=== PATIENT | female | born 1990 | race African-American/Black ===

== ENCOUNTER 2020-05-22 19:37 | Emergency (ER) | payer OTHER ==
[2020-05-22 19:45] VITALS: BP 121/79; PULSE 84; TEMP 97.8; BMI 31.8
--- NOTE | 2020-05-22 19:48 | PDOC ---
Rapid Medical Evaluation Time Seen by Provider: 05/22/20 19:43 Medical Evaluation: 05/22/20 19:43 CC: low back pain radiating laterally bilateral. No urinary complaints, no rash, no abd pain, currently completing menses, fell on wednesday when pain to back also started. took tylenol with mild relief Exam: + cva tenderness, noted abrasion to face Plan: urine Discharge Disposition - Diagnosis Back pain - Referrals - Patient Instructions - Post Discharge Activity
--- OUTSIDE RECORDS SUMMARY | 2020-05-22 19:55 | XMS ---
:1990 [facility] Providers Name Role Phone Brooklynn Unavailable Unavailable Other Unavailable Unavailable Re-disclosure Warning The records that you are about to access may contain information from federally- assisted alcohol or drug abuse programs. If such information is present, then the following federally mandated warning applies: This information has been disclosed to you from records protected by federal confidentiality rules (42 CFR part 2). The federal rules prohibit you from making any further disclosure of this information unless further disclosure is expressly permitted by the written consent of the person to whom it pertains or as otherwise permitted by 42 CFR part 2. A general authorization for the release of medical or other information is NOT sufficient for this purpose. The Federal rules restrict any use of the information to criminally investigate or prosecute any alcohol or drug abuse patient.The records that you are about to access may contain highly sensitive health information, the redisclosure of which is protected by Article 27-F of the [place] State Public Health law. If you continue you may haveaccess to information: Regarding HIV / AIDS; Provided by facilities licensed or operated by the [facility] Office of Mental Health; or Provided by the [facility] Office for People With Developmental Disabilities. If such information is present, then the following [facility] mandated warning applies: This information has been disclosed to you from confidential records which are protected by state law. State law prohibits you from making any further disclosure of this information without the specific written consent of the person to whom it pertains, or as otherwise permitted by law. Any unauthorized further disclosure in violation of state law may result in a fine or custodial sentence or both. A general authorization for the release of medical or other information is NOT sufficient authorization for further disclosure. Encounters Encounter Providers Location Date Indications Data Source(s ) Emergency Attender: [id number] 12/29/2019 [facility] - [facility] DysonAttender: 06:56:00 PM PAIN/HEADACHE/BRUIS [facility] Doctor Other EDT - ES 12/29/2019 08:36:00 PM EDT BACK PAIN/HEADACHE/BRUISES Patient discharged. Medications Medication Brand Start Product Dose Route Administrative Pharmacy [facility] Indications Reaction Description Data Name Date Form Instructions Instructions Source(s) Ibuprofen Alivio [id number] active Alivio [facility] 600 MG Oral 600 mg 2019 {tab( Healt h Tablet oral 08:27: s)} System Alivio 600 tablet 16 PM mg oral EDT tablet Do not take this drug if you are pregnan t.It is very important that you take or use this exactly as directed. Do not skip d oses or discontinue unless directed by your doctor.May cause drowsiness or dizziness .Obtain medical advice before taking any non-prescription drugs as some may affec t the action of this medication.Take with food or milk. Insurance Providers Payer name Policy type / Policy ID Covered Covered alliance party's Policy Plan Coverage type alliance party ID relationship to Strong Information strong [facility] [id number] [facility] [id number] [facility] [id number] Problems, Conditions, and Diagnoses Code Display Name Description Problem Type Effective Data Sour ce(s) Dates M79.10 Myalgia Myalgia 07221-9 12/29/2019 [facility] 12:00:00 AM Health System EDT W19.XXXA Unspecified fall, Unspecified fall, Diagnosis 12/29/2019 [facility] initial encounter initial encounter 06:56:00 PM [facility] EDT Y92.89 Other specified Other specified Diagnosis 12/29/2019 [facility] places as the places as place 06:56:[address] [facility] [address] of of occurrence of EDT occurrence of the external cause external cause Y99.8 Other external Other external Diagnosis 12/29/2019 [facility] cause status cause of injury 06:56:00 PM [facility] or poisoning EDT M79.10 Myalgia Myalgia Diagnosis 12/29/2019 [facility] 06:56:00 PM [facility] EDT M79.18 Myalgia, other Myalgia, other Diagnosis 12/29/2019 [facility] site site 06:56:00 PM [facility] EDT S70.12XA Contusion of left Contusion of left Diagnosis 12/29/2019 [facility] thigh, initial thigh, initial 06:56:00 PM [facility] Hospital encounter encounter EDT BACK BACK Diagnosis 12/29/2019 [facility] PAIN/HEADACHE/BRU PAIN/HEADACHE/BRU 06:56:00 PM [facility] EDT Y93.89 Activity, other Other activity Diagnosis 12/29/2019 [facility] specified 06:56:00 PM [facility] EDT Surgeries/Procedures Procedure Description Date Indications Data Source(s) Urine Test 12/29/2019 [facility] POCT 07:51:59 PM EDT - System 12/29/2019 07:52:13 PM EDT Results ID Date Data Source [id number] 12/08/2019 11:12:00 AM EDT [facility] Name Value Range Interpretation Code Description Data Samina rce(s) Supporting Document(s ) SARS-CoV-2 [facility] RNA [facility] Ql JYOTSNA+probe This lab was ordered by [facility] a nd reported by [facility]. Procedure Vital Signs ID Date Data Source UNK Name Value Range Interpretation Code Description Data Source(s) Diastolic blood 93 mm[Hg] 0 - 999 Above high normal 93 mm[Hg] [facility] Systolic blood 138 mm[Hg] 0 - 999 Normal (applies to 138 mm[Hg] [facility] non-numeric results) [facility] Oxygen saturation 98 % 0 - 999 Normal (applies to 98 % [facility] in Arterial blood non-numeric results) Health System by Pulse oximetry Respiratory rate 16 0 - 999 Normal (applies to 16 [facility] non-numeric results) [facility] Heart rate 71 0 - 999 Normal (applies to 71 [facility] non-numeric results) [facility] Body surface area 1.7 m2 1.7 m2 [facility] Derived from Health Syste m formula Body mass index 30.5 kg/m2 30.5 kg/m2 [facility] (BMI) [Ratio] [facility] Body weight 75.74 kg 75.74 kg [facility] Body height 157.48 cm 157.48 cm [facility] Body temperature 99.4 [degF] 0 - 200 Normal (applies to 99.4 [degF ] [facility] non-numeric results) [facility] Body temperature 37.4 Celena 0 - 99.9 Normal (applies to 37.4 Celena [facility] non-numeric results) [facility] Patient Treatment Plan of Care Planned Activity Planned Date Details Description Data Source (s) Ibuprofen 600 MG Oral 12/29/2019 08:27:16 [facility] PM EDT System
[2020-05-22 20:26] LABS: EPI CELLS >36 /uL (0-25.1); HYALINE CASTS 9 /uL (0-3.1); URINE APPEARANCE CLEAR; URINE BACTERIA 278 /uL (0-1359); URINE BILIRUBIN NEGATIVE (NEGATIVE); URINE COLOR DK YELLOW; URINE GLUCOSE (UA) NEGATIVE (NEGATIVE); URINE KETONE 1+ (NEGATIVE); URINE LEUK ESTERASE TRACE (NEGATIVE); URINE NITRITE NEGATIVE (NEGATIVE); URINE PROTEIN 2+ (NEGATIVE); URINE RBC 6 /uL (0-23.9); URINE WBC 64 /uL (0-25.8)
[2020-05-22] MEDS ORDERED: IBUPROFEN 600 MG TABLET (FP) PO ONE (20:34)
[2020-05-22] MEDS ORDERED: diazePAM 5 MG TABLET PO ONE (20:34)
--- NOTE | 2020-05-22 20:44 | PDOC ---
History of Present Illness - General Chief Complaint: Injury Stated Complaint: BACK PAIN Time Seen by Provider: 05/22/20 19:43 History Source: Patient Exam Limitations: No Limitations - History of Present Illness Initial Comments: 05/22/20 20:34 29-year-old female past medical history chronic back pain after fall in December presenting to ED complaining of acute on chronic back pain after trip and fall on Wednesday. Patient states that she tripped and fell over her child's crib hitting her face and side. Patient did not have loss of consciousness remembers the event has no headache and no episodes of nausea vomiting. Patient describes the back pain is bilateral and spasm-like typical of her normal acute on chronic back pain. Improved with Tylenol pt otherwise denies: fevers, chills, syncope, lightheadedness, dizziness, headaches, neck pain, chest pain, shortness of breath, palpitation, abdominal pain, nausea, vomiting, diarrhea, constipation. Past History - Medical History Allergies/Adverse Reactions: Allergies Allergy/AdvReac Type Severity Reaction Status Date / Time No Known Allergies Allergy Verified 05/22/20 20:37 COPD: No - Reproductive History Is Patient Now?: No - Psycho-Social/Smoking History Smoking History: Never smoked - Substance Abuse Hx (Audit-C & DAST Scrn) How often the patient has a drink containing alcohol: Never Score: In Men: 4 or > Positive; In Women: 3 or > Positive: 0 Screen Result (Pos requires Nsg. Audit-10AR): Negative In the last yr the pt used illegal drug/Rx for NonMed reason: No Score: Yes response is considered Positive: 0 Screen Result (Positive result requires Nsg. DAST-10): Negative *Physical Exam - Vital Signs Last Vital Signs Temp Pulse Resp BP Pulse Ox 97.8 F 84 19 121/79 100 05/22/20 19:41 05/22/20 19:41 05/22/20 19:41 05/22/20 19:41 05/22/20 19:41 - Physical Exam 05/22/20 20:44 Gen: AAOx 3, no acute distress, comfortable, no signs of respiratory distress HENT: There is a superficial abrasion to the nose nontender to palpation no active bleeding, normocephalic with no laceration or contusion. Nasal mucosa without erythema. Oropharynx without erythema or exudates. Mucous membranes moist. EYES: PERRL, EOM intact, conjunctiva pink nontender to bilateral zygomatic arches no signs of entrapment NECK: supple; trachea midline; no JVD, no lymphadenopathy, or thyromegaly CV: RRR no murmurs, gallops, or rubs. CHEST: CTA b/l no wheezing, rales or rhonchi ABD: +BS/ND. no TTP; soft, no rebound, no guarding no Morales Brenner or Juni sign EXTREMITY: no cyanosis or erythema. 2+ dorsalis pedis, posterior tibial, and radial pulse. No pedal edema; no calf swelling or tenderness SKIN: no rash, warm and dry, no diaphoresis HEME: no purpura or ecchymosis NEURO: normal speech, CN II-XII intact, sensation intact, normal gait, able to tip toe and heel walk, romberg and pronator drift absent, no cerebellar deficits, normal finger to nose, heel to graham, rapid alternating movements, no tremor, no dysmetria MS: 5/5 strength in all extremities, FROM intact in all extremities Back: Tender palpation to bilateral lumbar paravertebrals without midline tenderness negative straight leg raise ED Treatment Course - ADDITIONAL ORDERS Additional order review: Laboratory Results 05/22/20 20:09 Urine Color Dk yellow Urine Appearance Clear Urine pH 6.0 Ur Specific [place] 1.031 Urine Protein 2+ H Urine Glucose (UA) Negative Urine Ketones 1+ H Urine Blood Negative Urine Nitrite Negative Urine Bilirubin Negative Urine Urobilinogen 1.0 Ur Leukocyte Esterase Trace Urine WBC (Auto) 64 Urine RBC (Auto) 6 Urine Casts (Auto) 9 U Epithel Cells (Auto) >36 Urine Bacteria (Auto) 278 Medical Decision Making - Medical Decision Making 05/22/20 20:45 29-year-old female with acute on chronic back pain after fall Vital signs stable No imaging required in the ED at this time We will administer ibuprofen and Valium Will reassess based on results Patient reports improvement of pain with meds Pt appears well and is safe and stable for discharge with strict return precautions including signs and symptoms requring immediate return to the ED Supportive care instructions explained and given to pt. Reasons to return emergently to ER explained and given. Importance of follow up with PMD and other specialists as indicated stressed to pt. Pt verbalized understanding of instructions. Pt to follow up with PMD in 2 days. Discharge - Discharge Information Problems reviewed: Yes Clinical Impression/Diagnosis: Back pain Qualifiers: Back pain location: low back pain Chronicity: acute Back pain laterality: bilateral Sciatica presence: without sciatica Qualified Code(s): M54.5 - Low back pain Condition: Stable Disposition: HOME - Follow up/Referral Referrals: Petey Davis MD [Primary Care Provider] - - Patient Discharge Instructions Patient Printed Discharge Instructions: DI for Low Back Pain - Post Discharge Activity
== END 2020-05-22 20:58 | disposition home or self-care (01) ==
LOC: JERFT 19:37
DX: M54.9 Dorsalgia, unspecified (principal)
CPT/HCPCS: 81003; 87086; 87186; 99284-25